=== PATIENT | female | born 1990 | race Caucasian/White ===

== ENCOUNTER → 2020-12-06 | Day surgery (SDC) | payer OTHER ==
[~2020-12-06] VITALS: Ht 170.2 cm; Wt 86.2 kg
[~2020-12-06] MED LIST: BIRTH CONTROL PO; DICLOFENAC SODI75 MG PO; NORCO 5-325 TA1 EACH PO; ONDANSETRON ODT8 MG PO
[2020-12-06 11:19] LABS: HCG (URINE) SCREEN NEGATIVE (NEGATIVE)
== END | disposition home or self-care (01) ==
LOC: FAS 10:06
PROVIDERS: Anesthesiology
DX: L02.413 Cutaneous abscess of right upper limb (principal); Z88.8 Allergy status to other drugs, medicaments and biological substances; Z20.822 Contact with and (suspected) exposure to COVID-19
CPT/HCPCS: 84703; J2250; J2405; J2704; J3010; J7120; U0002